=== PATIENT | female | born 1950 | race African-American/Black ===

== ENCOUNTER 2016-08-11 23:58 | Emergency (ER) | payer MEDICARE, MEDICAID ==
[~2016-08-11] VITALS: Ht 162.6 cm; Wt 70.8 kg
[~2016-08-11 23:58] MED LIST: HYDR2TAB7 PO; IPRA14.7 IH; LISI10TA5 PO; METF500T4 PO; ONDA4TAB8 SL; PANT40TA2 PO; Q VAR INH; [UNRECOGNIZED DRUG - CODE] IH; [UNRECOGNIZED DRUG - CODE] PO
--- NOTE | 2016-08-12 00:10 | NUR ---
Pt c/o N/V x 3days. Aslo c/o left shoulder pain and right side pain due to fallig out of her scotter 3 days ago, pt is alert, oriented x 4, no resp distress noted or reported upon assessment. MD at bedside..
[2016-08-12] MEDS ORDERED: HYDR2TAB35 PO (00:13)
[2016-08-12 00:59] LABS: BASOPHILS # (AUTO) 0.2 K/uL (0.0-0.2); BASOPHILS % (AUTO) 2.4 % (0.0-2.0); EOSINOPHILS # (AUTO) 0.1 K/uL (0.0-0.7); HEMATOCRIT 47.7 % (37.0-47.0); HEMOGLOBIN 15.7 g/dL (12.0-16.0); LYMPHOCYTES # (AUTO) 2.2 K/uL (0.8-4.8); LYMPHOCYTES % (AUTO) 26.1 % (20.5-51.5); MEAN CORPUSCULAR HEMOGLOBIN 29.8 uug (27.0-31.0); MEAN CORPUSCULAR HGB CONC 33 g/dL (32.0-37.0); MEAN CORPUSCULAR VOLUME 90.6 fL (81.0-99.0); MONOCYTES # (AUTO) 0.6 K/uL (0.1-1.30); MONOCYTES % (AUTO) 6.6 % (0.0-11.0); NEUTROPHILS # (AUTO) 5.3 K/uL (1.8-8.9); NEUTROPHILS % (AUTO) 63.9 % (38.5-71.5); PLATELET COUNT (AUTO) 347 K/uL (150-450); RED BLOOD CELL COUNT(AUTO) 5.27 MIL/uL (4.20-5.40); RED CELL DISTRIBUTION WIDTH 13.6 % (11.5-14.5); WHITE BLOOD COUNT (AUTO) 8.4 K/uL (4.0-11.2)
[2016-08-12] MEDS ORDERED: KETOROLAC TROMETHAMINE 15 MG INJ IVP ONE (01:00)
[2016-08-12 01:16] LABS: BILIRUBIN,DIRECT 0.1 mg/dL (0.0-0.2); BILIRUBIN,TOTAL 0.6 mg/dL (0.2-1.0); CALCIUM 9.7 mg/dL (8.5-10.1); CREATININE 1.1 mg/dL (0.6-1.3); POTASSIUM 3.9 mmol/L (3.5-5.1); TOTAL PROTEIN, SERUM 9.5 g/dL (6.4-8.2)
[2016-08-12] MEDS ORDERED: KETOROLAC TROMETHAMINE 15 MG INJ ONE (01:17)
[2016-08-12] MEDS ORDERED: HYDROMORPHONE 1 MG/1 ML DISP.SYRIN IV ONE (02:45)
[2016-08-12] MEDS ORDERED: HYDROMORPHONE 1 MG/1 ML DISP.SYRIN ONE (02:54)
--- NOTE | 2016-08-12 03:20 | NUR ---
pt woke up vomiting x4, ERMD advised, interventions ordered...
[2016-08-12] MEDS ORDERED: ONDANSETRON 4 MG/2 ML VIAL IV ONE (03:30)
[2016-08-12] MEDS ORDERED: IV NORMAL SALINE 500 ML BAG IV ONE (03:30)
[2016-08-12] MEDS ORDERED: ONDANSETRON 4 MG/2 ML VIAL ONE (03:35)
--- NOTE | 2016-08-12 04:10 | NUR ---
pt continues resting in bed, no vomiting, pt arousable to name, will continue to monitor pt for safety, comfort and pain...
[2016-08-12 06:45] VITALS: BP 156/105
--- NOTE | 2016-08-12 06:45 | NUR ---
Patient discharged to home in stable conditon. Written and verbal after care instructions given. Patient verbalizes understanding of instructions. Pt exited ER via her scooter, with belongings at side...
== END 2016-08-12 06:56 | disposition home or self-care (01) ==
LOC: ER 23:58
DX: K85.90 Acute pancreatitis without necrosis or infection, unspecified (principal); I10 Essential (primary) hypertension; E11.9 Type 2 diabetes mellitus without complications; J45.909 Unspecified asthma, uncomplicated; J44.9 Chronic obstructive pulmonary disease, unspecified; E78.5 Hyperlipidemia, unspecified; K21.9 Gastro-esophageal reflux disease without esophagitis; F17.200 Nicotine dependence, unspecified, uncomplicated; Z88.6 Allergy status to analgesic agent; Z88.1 Allergy status to other antibiotic agents
CPT/HCPCS: 36415; 71010; 80048; 80076; 83690; 85025; 93005; 96361; 96374; 96375; 99285; A4663; J1170; J1885; J2405; J7040

== ENCOUNTER 2016-09-05 16:41 | Emergency (ER) | payer MEDICARE, MEDICAID ==
[~2016-09-05] VITALS: Ht 162.6 cm; Wt 70.8 kg
[~2016-09-05 16:41] MED LIST changes: +HYDR2TAB35 PO; -HYDR2TAB7 PO
[2016-09-05] MEDS ORDERED: ALBUTEROL SULFATE 2.5 MG/3 ML NEBU NEB ONE (17:00)
[2016-09-05] MEDS ORDERED: IPRATROPIUM BROMIDE 0.5 MG/2.5 ML NEBU NEB ONE (17:00)
[2016-09-05] MEDS ORDERED: predniSONE 10 MG TABLET PO ONE (17:00)
--- NOTE | 2016-09-05 17:00 | NUR ---
PT REFUSED PREDNISONE STATES SHE GETS CHEST PAIN AND VOMITTING FROM IT. DR MENDEZ NOTIFIED. MEDICATION WITHHELD.
[2016-09-05] MEDS ORDERED: predniSONE 50 MG TABLET ONE (17:06)
[2016-09-05] MEDS ORDERED: predniSONE 10 MG TABLET ONE (17:07)
[2016-09-05] MEDS ORDERED: IPRATROPIUM BROMIDE 0.5 MG/2.5 ML NEBU ONE (17:08)
[2016-09-05] MEDS ORDERED: ALBUTEROL SULFATE 2.5 MG/3 ML NEBU ONE (17:08)
--- NOTE | 2016-09-05 18:02 | NUR ---
PT FEELING BETTER AT THIS TIME. DISCHARGE INSTRUCTIONS GIVEN WITH PRESCRIPTIONS.
[2016-09-05 18:04] VITALS: BP 160/92
== END 2016-09-05 18:16 | disposition home or self-care (01) ==
LOC: ER 16:46
DX: J45.909 Unspecified asthma, uncomplicated (principal); I10 Essential (primary) hypertension; E11.9 Type 2 diabetes mellitus without complications; K21.9 Gastro-esophageal reflux disease without esophagitis; J44.9 Chronic obstructive pulmonary disease, unspecified; F17.200 Nicotine dependence, unspecified, uncomplicated; Z88.6 Allergy status to analgesic agent; Z88.1 Allergy status to other antibiotic agents
CPT/HCPCS: A4663; J3590; J7512

== ENCOUNTER 2017-07-08 14:35 | Emergency (ER) | payer MEDICARE, MEDICAID ==
[~2017-07-08] VITALS: Ht 162.6 cm; Wt 70.3 kg
[~2017-07-08 14:35] MED LIST changes: +CHOL200074 PO; -HYDR2TAB35 PO; +HYDR2TAB4 PO; -[UNRECOGNIZED DRUG - CODE] PO
[2017-07-08] MEDS ORDERED: FLUT1BLS4 IH (15:05)
[2017-07-08] MEDS ORDERED: LORATADINE 10 MG TABLET PO SCH (15:30)
[2017-07-08] MEDS ORDERED: FAMOTIDINE 20 MG TABLET PO ONE (15:30)
[2017-07-08] MEDS ORDERED: predniSONE 20 MG TABLET PO ONE (15:30)
[2017-07-08] MEDS ORDERED: predniSONE 10 MG TABLET ONE (15:40)
[2017-07-08] MEDS ORDERED: LORATADINE 10 MG TABLET ONE (15:40)
[2017-07-08] MEDS ORDERED: FAMOTIDINE 20 MG TABLET ONE (15:40)
[2017-07-08] MEDS ORDERED: predniSONE 50 MG TABLET ONE (15:41)
--- NOTE | 2017-07-08 15:51 | NUR ---
Patient discharged to home in stable conditon. Written and verbal after care instructions given. Patient verbalizes understanding of instructions.pt refuses the px for prednisone and pepcid, says has allrgy to prednisone, makes her "throw up and other problems". notified. Addendum: 07/08/17 at 1553 by SKY per pt request, prednisone was added to list of med allergies.
[2017-07-08 15:56] VITALS: BP 109/79
--- NOTE | 2017-07-08 15:57 | NUR ---
pt came with own automatic wheel chair
== END 2017-07-08 15:58 | disposition home or self-care (01) ==
LOC: ER 14:36
DX: L25.9 Unspecified contact dermatitis, unspecified cause (principal); I10 Essential (primary) hypertension; E11.9 Type 2 diabetes mellitus without complications; J44.9 Chronic obstructive pulmonary disease, unspecified; K21.9 Gastro-esophageal reflux disease without esophagitis; Z88.8 Allergy status to other drugs, medicaments and biological substances; F17.200 Nicotine dependence, unspecified, uncomplicated; Z90.49 Acquired absence of other specified parts of digestive tract
CPT/HCPCS: A4663; J7512

== ENCOUNTER 2019-10-27 11:27 | Emergency (ER) | payer MEDICARE, OTHER ==
[~2019-10-27] VITALS: Ht 154.9 cm; Wt 74.8 kg
[~2019-10-27 11:27] MED LIST changes: -CHOL200074 PO; +FLUT1BLS4 IH; -HYDR2TAB4 PO; +METF-440 PO; -METF500T4 PO; -ONDA4TAB8 SL
--- NOTE | 2019-10-27 11:45 | NUR ---
PATIENT WAS MSE BY DR BIRMINGHAM IN ROOM 03A.
[2019-10-27] MEDS ORDERED: IV NORMAL SALINE 1000 ML BAG IV ONE (12:00)
[2019-10-27] MEDS ORDERED: TIZA4TAB11 PO (12:13)
[2019-10-27] MEDS ORDERED: CARI350T PO (12:13)
[2019-10-27] MEDS ORDERED: MORPHINE SULFATE 4 MG/1 ML DISP.SYRIN IV ONE (12:45)
[2019-10-27] MEDS ORDERED: ONDANSETRON 4 MG/2 ML VIAL IV ONE (12:45)
[2019-10-27] MEDS ORDERED: MORPHINE SULFATE 4 MG/1 ML DISP.SYRIN ONE (12:46)
[2019-10-27] MEDS ORDERED: ONDANSETRON 4 MG/2 ML VIAL ONE (12:46)
[2019-10-27 12:55] LABS: BASOPHILS # (AUTO) 0.1 K/uL (0.0-8.0); EOSINOPHILS % (AUTO) 0.1 % (0.0-7.0); HEMATOCRIT 40.4 % (31.2-41.9); HEMOGLOBIN 13.2 g/dL (10.9-14.3); LYMPHOCYTES # (AUTO) 1.3 K/uL (20.0-40.0); LYMPHOCYTES % (AUTO) 17.4 % (20.5-51.5); MEAN CORPUSCULAR HEMOGLOBIN 31.6 uug (24.7-32.8); MEAN CORPUSCULAR HGB CONC 33 g/dL (32.3-35.6); MEAN CORPUSCULAR VOLUME 96.8 fL (75.5-95.3); MONOCYTES # (AUTO) 0.3 K/uL (2.0-10.0); MONOCYTES % (AUTO) 3.6 % (0.0-11.0); NEUTROPHILS % (AUTO) 77.9 % (38.5-71.5); PLATELET COUNT (AUTO) 318 K/uL (179-408); RED BLOOD CELL COUNT(AUTO) 4.18 MIL/uL (3.63-4.92); WHITE BLOOD COUNT (AUTO) 7.7 K/uL (3.8-11.8)
[2019-10-27 13:01] LABS: POTASSIUM 4.6 mmol/L (3.5-5.1)
[2019-10-27 13:07] LABS: BILIRUBIN,DIRECT 0.2 mg/dL (0.0-0.2); BILIRUBIN,TOTAL 0.5 mg/dL (0.2-1.0); TOTAL PROTEIN, SERUM 7.7 g/dL (6.4-8.2)
[2019-10-27 13:18] LABS: FERRITIN 144 ng/mL (8-252)
[2019-10-27 13:20] LABS: CREATINE KINASE, TOTAL 90 U/L (26-192); LACTATE DEHYDROGENASE 271 U/L (81-234)
--- NOTE | 2019-10-27 14:25 | NUR ---
DR BIRMINGHAM MADE PATIENT AWARE OF TEST RESULTS.
--- NOTE | 2019-10-27 14:40 | NUR ---
Patient discharged to home in stable condition. Written and verbal after care instructions given. Patient verbalizes understanding of instructions. Stressed follow up or return to ER for worsening s/s.
[2019-10-27 14:44] VITALS: BP 145/82
== END 2019-10-27 14:45 | disposition home or self-care (01) ==
LOC: ER 11:27
DX: B34.9 Viral infection, unspecified (principal); R50.9 Fever, unspecified; R05 Cough; Z20.828 Contact with and (suspected) exposure to other viral communicable diseases; J44.9 Chronic obstructive pulmonary disease, unspecified; K21.9 Gastro-esophageal reflux disease without esophagitis; Z90.49 Acquired absence of other specified parts of digestive tract; F17.200 Nicotine dependence, unspecified, uncomplicated; E11.9 Type 2 diabetes mellitus without complications; Z79.899 Other long term (current) drug therapy; I11.9 Hypertensive heart disease without heart failure; Z79.84 Long term (current) use of oral hypoglycemic drugs; Z87.01 Personal history of pneumonia (recurrent)
CPT/HCPCS: 0099U; 36415; 71045; 80048; 80076; 82550; 82728; 83605; 83615; 83690; 83880; 84484; 85025; 85730; 86140; 87040; 87400; 93005; 96361; 96374; 96375; 99284; J2270; J2405; U0003; 70030-TC; A4663; J7030

== ENCOUNTER 2021-06-09 15:28 | Emergency (ER) | payer MEDICARE, OTHER ==
[~2021-06-09] VITALS: Ht 160 cm; Wt 68.0 kg
[~2021-06-09 15:28] MED LIST changes: +CARI350T PO; +LISI10TA29 PO; -LISI10TA5 PO; +TIZA4TAB11 PO
[2021-06-09] MEDS ORDERED: HYDR-3641 PO (15:45)
--- NOTE | 2021-06-09 15:56 | NUR ---
DISCHARGE INSTRUCTIONS GIVEN PER MD ORDERS.
== END 2021-06-09 15:57 | disposition home or self-care (01) ==
LOC: ER 15:28
DX: L29.9 Pruritus, unspecified (principal); E11.9 Type 2 diabetes mellitus without complications; Z79.84 Long term (current) use of oral hypoglycemic drugs; I10 Essential (primary) hypertension; J44.9 Chronic obstructive pulmonary disease, unspecified; K21.9 Gastro-esophageal reflux disease without esophagitis; Z90.49 Acquired absence of other specified parts of digestive tract; Z88.6 Allergy status to analgesic agent; Z88.1 Allergy status to other antibiotic agents; Z79.899 Other long term (current) drug therapy; R01.1 Cardiac murmur, unspecified; F17.200 Nicotine dependence, unspecified, uncomplicated
CPT/HCPCS: A4663

== ENCOUNTER 2021-09-13 19:57 | Inpatient (IN) | payer MEDICAID, MEDICARE ==
[~2021-09-13] VITALS: Ht 162.6 cm; Wt 67.6 kg
[~2021-09-13 19:57] MED LIST changes: +HYDR-3641 PO
[2021-09-13] MEDS ORDERED: KETOROLAC TROMETHAMINE 15 MG INJ IVP ONE (21:00)
[2021-09-13] MEDS ORDERED: IPRATROPIUM BROMIDE 0.5 MG/2.5 ML NEBU NEB ONE (21:00)
[2021-09-13] MEDS ORDERED: ALBUTEROL SULFATE 2.5 MG/3 ML NEBU NEB ONE (21:00)
[2021-09-13] MEDS ORDERED: IV NORMAL SALINE 500 ML BAG IV ONE (21:00)
[2021-09-13] MEDS ORDERED: ONDANSETRON 4 MG/2 ML VIAL IV ONE ×2 (21:00→23:00)
[2021-09-13] MEDS ORDERED: ALBUTEROL SULFATE 2.5 MG/3 ML NEBU ONE (21:07)
[2021-09-13] MEDS ORDERED: IPRATROPIUM BROMIDE 0.5 MG/2.5 ML NEBU ONE (21:08)
[2021-09-13 21:16] LABS: HEMATOCRIT 36.7 % (31.2-41.9); MEAN CORPUSCULAR HEMOGLOBIN 31.7 uug (24.7-32.8); MEAN CORPUSCULAR VOLUME 95.6 fL (75.5-95.3); PLATELET COUNT (AUTO) 310 K/uL (179-408)
[2021-09-13 21:22] LABS: CARBON DIOXIDE 27 mmol/L (21-32); CHLORIDE 108 mmol/L (98-107); CREATININE 1.3 mg/dL (0.6-1.3); GLUCOSE 125 mg/dL (74-106); UREA NITROGEN, BLOOD 20 mg/dL (7-18)
[2021-09-13 21:31] LABS: ALANINE AMINOTRANSFERASE 28 U/L (14-59); ALKALINE PHOSPHATASE 65 U/L (50-136); ASPARTATE AMINOTRANSFERASE 17 U/L (15-37); BILIRUBIN,DIRECT 0.1 mg/dL (0.0-0.2); BILIRUBIN,TOTAL 0.2 mg/dL (0.2-1.0); LIPASE 172 U/L (73-393); TOTAL PROTEIN, SERUM 6.5 g/dL (6.4-8.2)
[2021-09-13] MEDS ORDERED: ONDANSETRON 4 MG/2 ML VIAL ONE ×2 (22:09→22:52)
[2021-09-13] MEDS ORDERED: KETOROLAC TROMETHAMINE 15 MG INJ ONE (22:09)
--- NOTE | 2021-09-13 22:15 | NUR ---
Patient prepared for CT scan; and requesting that she be admitted. Discussed request with Dr. Contreras. Complaining of pain. Morphine 4 mg IVP given. Patient understood procedure; as she had done them before. IV fluid infusing well without any signs of blockage.
--- NOTE | 2021-09-13 22:19 | NUR ---
Patient received in [facility]. Confirmed complaint of pain, to right lower quadrant radiating to right flank. 22G peripheral IV placed to left forearm, infusing well without signs of infiltration. Secured. Discussed course of ED treatment. Reported care to Dr. Contreras. Medication orders carried out. Patient advised to rest at this time. On oxygen via nasal cannula at low flow rate at 1.5, saturation at 100%. Sinus rhythm at 80's regular. Denies chest pain, but minimal shortness of breath.
--- NOTE | 2021-09-13 22:45 | NUR ---
Returned from CT. Placed in room. Repositioned for comfort. Awaiting results.
[2021-09-13] MEDS ORDERED: MORPHINE SULFATE 4 MG/1 ML DISP.SYRIN ONE (22:53)
[2021-09-13] MEDS ORDERED: MORPHINE SULFATE 4 MG/1 ML DISP.SYRIN IV ONE (23:00)
[2021-09-14 01:58] LABS: *CLARITY,URINE CLEAR (CLEAR); *COLOR,URINE YELLOW (YELLOW); *KETONES,URINE 1+ (NEGATIVE); *UROBILINOGEN,URINE 0.2 E.U./dl (NORMAL); LEUKOCYTE ESTERASE ,URINE 1+ (NEGATIVE); NITRITE, URINE POSITIVE (NEGATIVE); PH,URINE 5.5 (5.0-8.0); UGLUCOSE NEGATIVE (NEGATIVE)
[2021-09-14 01:59] LABS: *BILIRUBIN,URIN 1+ (NEGATIVE); *BLOOD, URINE TRACE (NEGATIVE)
[2021-09-14] MEDS ORDERED: CEFTRIAXONE 1 G in IV DEXTROSE 5% 50 ML IV ONE (02:45)
[2021-09-14] MEDS ORDERED: CEFTRIAXONE /D5W 50ML IVPB **ER PYXIS IV ONE (02:50)
--- NOTE | 2021-09-14 02:58 | NUR ---
Dr. Contreras on panel call with Dr. Tim Corley.
[2021-09-14] MEDS ORDERED: MAGNESIUM HYDROXIDE 30 ML LIQUID UDC PO PRN (03:15)
[2021-09-14] MEDS ORDERED: HYDROCODONE/APAP 5-325MG TABLET PO PRN (03:15)
[2021-09-14] MEDS ORDERED: ONDANSETRON 4 MG/2 ML VIAL IV PRN (03:15)
[2021-09-14] MEDS ORDERED: IV NS 1000 ML 1,000 ML IV PRN (03:15)
[2021-09-14] MEDS ORDERED: CARISOPRODOL 350 MG TABLET PO SCH (06:00)
[2021-09-14] MEDS ORDERED: DEXTROSE 50% 50 ML DISP.SYRIN IV PRN (07:45)
[2021-09-14] MEDS ORDERED: INSULIN REGULAR, HUMAN 300 UNIT/3 ML VIAL SQ PRN (07:45)
--- NOTE | 2021-09-14 08:00 | NUR ---
98.8 sbp of 66 sbp of 145/84, saturation of 98% on 2L nc.
[2021-09-14] MEDS ORDERED: hydrALAZINE HCL 20 MG/1 ML VIAL IV PRN (08:30)
[2021-09-14] MEDS ORDERED: PANTOPRAZOLE SODIUM 40 MG TABLET.DR PO SCH (09:00)
[2021-09-14] MEDS ORDERED: TIZANIDINE HCL 4 MG TABLET PO SCH (09:00)
[2021-09-14 11:10] LABS: BACTERIA,URINE MANY /HPF (NONE SEEN); SQUAMOUS EPITHELIAL CELL,UR FEW /HPF (NONE SEEN)
--- NOTE | 2021-09-14 11:30 | NUR ---
Patient refusing to consent for MRI, ERCP stating "Im not doing until I have a room to stay" Attending Dr. Harmon called and notified. He's ok with pt's decision and orders to cancel procedure received.
--- NOTE | 2021-09-14 12:00 | NUR ---
97.7 sbp of 145/84, rr 14 saturation of 97% on 2LNC
--- NOTE | 2021-09-14 13:52 | NUR ---
Pt. refusing lab draws at this time stating "I'm frustrated of long wait to have a room".
[2021-09-14] MEDS ORDERED: KETOROLAC TROMETHAMINE 60 MG INJ IM PRN (14:45)
[2021-09-14] MEDS ORDERED: KETOROLAC TROMETHAMINE 30 MG INJ IVP PRN (15:00)
--- NOTE | 2021-09-14 16:16 | NUR ---
Telephone report given to Milka Lynn follow up vitals of 165/74, rr 16, HR of 88. pt. taken up via wheelchair.
[2021-09-14] MEDS: IV NS 1000 ML 1,000 ML IV PRN (16:24)
[2021-09-14] MEDS ORDERED: ALBU2.5V13 IH (16:27)
[2021-09-14 16:30] VITALS: BP 157/61
[2021-09-14] MEDS: METFORMIN HCL 500 MG TABLET PO SCH (17:17)
[2021-09-14] MEDS: BLOOD SUGAR DIAGNOSTIC 1 EACH STRIP VI SCH ×2 (17:17→21:00)
--- NOTE | 2021-09-14 17:18 | NUR ---
Bs 90 mg/dl held metformin, gave pt 1 orange juice to drink. no ss of hypoglycemia noted.
--- NOTE | 2021-09-14 17:57 | NUR ---
1630 Admit patient to [place] from Er via gurney dx: kidney stones. Alert and oriented x4. Denies pain or sob. Routine admission care done. Safety measures on. Needs attended. Cont to monitor. Dr. Harmon aware.
--- NOTE | 2021-09-14 19:15 | NUR ---
Received patient on bed, awake, alert and orientedx4, no complaint of pain, no shortness of breath noted. Skin discoloration at lower abdominal area checked, no discharges present at this time.
[2021-09-14 20:07] VITALS: BP 160/82
--- NOTE | 2021-09-14 20:12 | NUR ---
Patient refused to sign consent for MRCP without contrast as ordered, refused to be NPO at midnight. Dr. Zahraa Sahu notified. Addendum: 09/15/21 at 0517 by PETER KHAN RN RN replied to cancel the MRCP
[2021-09-14] MEDS: TAMSULOSIN HCL 0.4 MG CAP.SR.24H PO SCH (21:00)
[2021-09-14] MEDS ORDERED: ENOXAPARIN SODIUM 40 MG/0.4 ML DISP.SYRIN SQ SCH (21:00)
[2021-09-14] MEDS: LISINOPRIL 10 MG TABLET PO SCH (21:06)
[2021-09-14] MEDS: KETOROLAC TROMETHAMINE 15 MG INJ IVP PRN (21:12)
--- NOTE | 2021-09-14 21:24 | NUR ---
Patient strongly refused for accucheck, patient stated her daughter might come tomorrow to bring her own pricker. She want to use her own pricker.
[2021-09-15] MEDS: IV NS 1000 ML 1,000 ML IV PRN (00:52)
[2021-09-15] MEDS: CEFTRIAXONE 1 G in IV DEXTROSE 5% 50 ML IV SCH (03:16)
[2021-09-15 04:15] VITALS: BP 119/78
--- NOTE | 2021-09-15 05:41 | NUR ---
Patient going out of bed to sit in the commode for voiding. All due medications given.
[2021-09-15] MEDS: PANTOPRAZOLE SODIUM 40 MG TABLET.DR PO SCH (06:08)
[2021-09-15] MEDS: BLOOD SUGAR DIAGNOSTIC 1 EACH STRIP VI SCH ×4 (06:14→21:00)
--- NOTE | 2021-09-15 06:30 | NUR ---
Patient strongly refused for blood works extraction. Significance of monitoring lab works explained, still patient refused.
[2021-09-15] MEDS: METFORMIN HCL 500 MG TABLET PO SCH ×2 (09:06→18:18)
[2021-09-15] MEDS: LISINOPRIL 10 MG TABLET PO SCH ×2 (09:15→21:00)
[2021-09-15] MEDS: FLUTICASONE/VILANTEROL 1 EACH BLST.W.DEV INH SCH (09:33)
--- NOTE | 2021-09-15 11:31 | NUR ---
WOUND CARE CONSULT: PT PRESENTS WITH DRY LESION TO RT FOOT, PRESENT ON ADMISSION. DR OREILLY CALLED FOR DPM CONSULT. PT IS AMBULATORY AND CONTINENT. IN AGREEMENT WITH PLAN OF CARE.
--- NOTE | 2021-09-15 11:36 | NUR ---
PATIENT CONTINUED TO REFUSE ACCUCHEK. MADE AWARE
[2021-09-15 11:44] VITALS: BP 171/82
[2021-09-15] MEDS: ACETAMINOPHEN 325 MG TABLET PO PRN ×3 (12:08→12:14)
[2021-09-15] MEDS: KETOROLAC TROMETHAMINE 15 MG INJ IVP PRN ×2 (12:17→19:53)
--- NOTE | 2021-09-15 15:27 | NUR ---
SEEN BY DR HURLEY PLAN DISCHARGE IN AM
[2021-09-15 16:30] VITALS: BP 163/89
[2021-09-15] MEDS: CLOTRIMAZOLE 1% CREAM 30 GM TUBE TOP SCH ×2 (16:57→17:00)
--- NOTE | 2021-09-15 18:31 | NUR ---
HEPLOCK REMOVED PER REQUEST DUE TO PAIN ON THE SITE BUT REFUSED REINSERTION
[2021-09-15] MEDS ORDERED: hydrALAZINE HCL 25 MG TABLET PO PRN (19:00)
--- NOTE | 2021-09-15 20:00 | NUR ---
Pt agreed with IVHL for her to have the toradol. g 24 IVHL inserted to left hand
[2021-09-15] MEDS: TAMSULOSIN HCL 0.4 MG CAP.SR.24H PO SCH (21:00)
[2021-09-16] MEDS: CEFTRIAXONE 1 G in IV DEXTROSE 5% 50 ML IV SCH (03:00)
--- NOTE | 2021-09-16 03:51 | NUR ---
pt agreed for antibiotics; pt went to the bathroom; Rocephin and activated and when about to flush IVHL, pt refused Rocephin. patient educated with the need for the Rocephin but patient remains refusing.
[2021-09-16] MEDS: CLOTRIMAZOLE 1% CREAM 30 GM TUBE TOP SCH (04:26)
[2021-09-16] MEDS: FLUTICASONE/VILANTEROL 1 EACH BLST.W.DEV INH SCH (04:29)
--- NOTE | 2021-09-16 04:36 | NUR ---
pt requested her early dose of Breo and Lotrimin; admistered these meds early
[2021-09-16] MEDS: BLOOD SUGAR DIAGNOSTIC 1 EACH STRIP VI SCH ×2 (06:18→11:30)
[2021-09-16] MEDS: PANTOPRAZOLE SODIUM 40 MG TABLET.DR PO SCH (06:18)
--- NOTE | 2021-09-16 06:22 | NUR ---
Pt refused VS and accucheck; pt remains non compliant with care; education given but still refusing care.
[2021-09-16] MEDS: METFORMIN HCL 500 MG TABLET PO SCH (09:22)
[2021-09-16 09:29] VITALS: BP 153/76
[2021-09-16] MEDS: LISINOPRIL 10 MG TABLET PO SCH (09:29)
[2021-09-16] MEDS: KETOROLAC TROMETHAMINE 15 MG INJ IVP PRN (09:31)
--- NOTE | 2021-09-16 10:44 | NUR ---
Pt is a/o x 3, noncompliant with medical care. Pt refused to get IV rocephin reported by retail shift supervisor. Pt refused to have blood pressure taken in morning, explained that she needs it taken for morning medications, pt said to come back later. At later time i was able to obtain vitals and pt took metformin and blood pressure medication. Plan is to discharge pt back home today. Will continue to monitor.Comfort measures provided.
[2021-09-16] MEDS ORDERED: TAMS-3 PO (11:52)
--- NOTE | 2021-09-16 13:16 | NUR ---
Pt has been discharged. Pt is discharged home, transportation provided by daughter via uber. All personal belongings at hand. Pt refused to have photos of admission wounds retaken. All discharge education and materials provided. Medications sent electronically and provided physical script for toradol. Pt is a/o x 4, stable for discharge, no acute distress noted or reported. IV access adn ID band removed. Pt has been wheeled down to main entrance by nurse.
== END 2021-09-16 13:10 | disposition home health service (06) | DRG 465 ==
LOC: ER 19:59 → MEDSURG3 09-14 15:51
PROVIDERS: ADMIT Internal Medicine; ATTEND Internal Medicine
DX: N20.0 Calculus of kidney (principal); E11.40 Type 2 diabetes mellitus with diabetic neuropathy, unspecified; K83.8 Other specified diseases of biliary tract; B35.3 Tinea pedis; E11.9 Type 2 diabetes mellitus without complications; E66.9 Obesity, unspecified; R10.11 Right upper quadrant pain; N39.0 Urinary tract infection, site not specified; Z79.84 Long term (current) use of oral hypoglycemic drugs; Z90.49 Acquired absence of other specified parts of digestive tract; F41.9 Anxiety disorder, unspecified; M20.41 Other hammer toe(s) (acquired), right foot; M20.42 Other hammer toe(s) (acquired), left foot; G89.29 Other chronic pain; I10 Essential (primary) hypertension; Z20.822 Contact with and (suspected) exposure to COVID-19; Z87.891 Personal history of nicotine dependence; Z91.19 Patient's noncompliance with other medical treatment and regimen; M19.90 Unspecified osteoarthritis, unspecified site; J44.9 Chronic obstructive pulmonary disease, unspecified; Z68.25 Body mass index [BMI] 25.0-25.9, adult
CPT/HCPCS: 36415; 71045; 83690; 84484; 85025; 87077; 87086; 93005; 93307; A4663; G0378; J0696; J1650; J1815; J1885; J2270; J2405; J3590; J7040